=== PATIENT | female | born 1975 ===

== ENCOUNTER 2018-10-19 08:20 | Emergency (ER) | payer BC ==
[2018-10-19 08:41] VITALS: BP 111/84
--- NOTE | 2018-10-19 09:20 | ED ---
Skin Complaint - HPI Summary HPI Summary: Patient is a 33-year-old female who presents to the urgent care with chief complaint of having swelling and pain in the right hand after she was bit by an insect. Patient has no other complaints. - History of Current Complaint Chief Complaint: UCGeneralIllness Time Seen by Provider: 10/19/18 09:07 Stated Complaint: CONGESTION Hx Last Menstrual Period: 10/19/18 Pain Intensity: 0 - Allergy/Home Medications Allergies/Adverse Reactions: Allergies Allergy/AdvReac Type Severity Reaction Status Date / Time No Known Allergies Allergy Verified 10/19/18 09:13 Home Medications: Home Medications Guaifenesin/Dextromethorphan [Mucinex Dm ER 600-30 mg Tablet] 1 each PO ONCE [History Confirmed 10/19/18] Naproxen Sodium [Aleve] 220 mg PO ONCE 10/19/18 [History Confirmed 10/19/18] PMH/Surg Hx/FS Hx/Imm Hx Previously Healthy: Yes Endocrine/Hematology History: Denies: Hx Diabetes, Hx Thyroid Disease Cardiovascular History: Denies: Hx Hypercholesterolemia, Hx Hypertension, Hx Peripheral Vascular Disease Respiratory History: Denies: Hx Asthma Musculoskeletal History: Denies: Hx Arthritis, Hx Rheumatoid Arthritis, Hx Osteoporosis Sensory History: Denies: Hx Cataracts, Hx Contacts or Glasses, Hx Glaucoma Opthamlomology History: Denies: Hx Cataracts, Hx Contacts or Glasses, Hx Glaucoma Neurological History: Denies: Hx Headaches, Hx Seizures, Hx Transient Ischemic Attacks (TIA) Psychiatric History: Denies: Hx Anxiety, Hx Depression Infectious Disease History: No Infectious Disease History: Denies: Traveled Outside the [place] in Last 30 Days - Social History Alcohol Use: Occasionally Hx Substance Use: No Substance Use Type: Reports: None Hx Tobacco Use: Yes Smoking Status (MU): Never Smoked Tobacco Review of Systems Constitutional: Negative Eyes: Negative ENT: Negative Cardiovascular: Negative Respiratory: Negative Gastrointestinal: Negative Genitourinary: Negative Musculoskeletal: Negative Positive: Other - redness and swelling Neurological: Negative Psychological: Normal All Other Systems Reviewed And Are Negative: Yes Physical Exam - Summary Physical Exam Summary: VITAL SIGNS: Reviewed. GENERAL: Nontoxic. Well developed and well nourished. Appears well hydrated. No respiratory distress. HEAD: No signs of head trauma. The fontanels are WNL. EYES: Pupils are equal. EARS: Bilateral ear canals and tympanic membranes within normal limits. NOSE: Nasal mucosa WNL. No discharge. MOUTH: Oropharynx normal. NECK: Supple, non-tender, no masses. FROM without pain. No meningismus. CHEST: Chest non-tender to palpation. No intercostal retractions. LUNGS: Coarse breath sounds bilaterally CVS: RRR. S1 and S2, without murmurs or extra heart sounds. Peripheral pulses normal and equal in all extremities. Central capillary refill normal. ABDOMEN: Soft without detectable tenderness or masses. No signs of distention. No rebound or guarding. Bowel sounds normal MUSCULOSKELETAL: Normal Range of motion. No deformity. NEURO: Alert. No focal sensory or strength deficits. Age appropriate, active, moving all extremities well. SKIN: right hand with slight swelling and redness Triage Information Reviewed: Yes Vital Signs On Initial Exam: Initial Vitals Temp Pulse Resp BP Pulse Ox 97.8 F 54 16 111/84 100 10/19/18 08:38 10/19/18 08:38 10/19/18 08:38 10/19/18 08:38 10/19/18 08:38 Diagnostics - Vital Signs Vital Signs Temp Pulse Resp BP Pulse Ox 10/19/18 08:38 97.8 F 54 16 111/84 100 - Laboratory Lab Statement: Any lab studies that have been ordered have been reviewed, and results considered in the medical decision making process. Course/Dx - Course Assessment/Plan: It seems that the patient has an slight swelling and redness of the right hand possibly secondary to slight cellulitis. Therefore the patient was placed in Keflex and follow with the primary care physician in the next 2-3 days. Patient was recommended to return to the emergency department if she develops any more pain or swelling. She understands and agrees. - Diagnoses Provider Diagnoses: Cellulitis of hand Discharge - Sign-Out/Discharge Documenting (check all that apply): Patient Departure All imaging exams completed and their final reports reviewed: No Studies - Discharge Plan Condition: Stable Disposition: HOME Prescriptions: Cephalexin CAP* [Keflex CAP*] 500 mg PO TID #30 cap Patient Education Materials: Insect Bite or Sting (ED) Forms: *Work Release Referrals: Eliane Donis PA [Primary Care Provider] - Additional Instructions: Take medications as indicated. If symptoms worsens return to the ED. F/U with PCP in 3 days - Billing Disposition and Condition Condition: STABLE Disposition: Home
--- NOTE | 2018-10-19 09:34 | UC ---
Throat Pain/Nasal Jj HPI - HPI Summary HPI Summary: Patient is a 43-year-old female who presents to the emergency department with a chief complaint of having sore throat. She reports its something stuck in throat. She denies any fever, denies any chills, denies any difficulty swallowing, she denies any drooling, she denies any swelling of the tongue or lips. She has no other complaints. She reports that the symptoms started 2 days ago. - History of Current Complaint Chief Complaint: UCGeneralIllness Stated Complaint: CONGESTION Time Seen by Provider: 10/19/18 09:07 Hx Last Menstrual Period: 10/19/18 Severity: Mild Pain Intensity: 0 - Allergies/Home Medications Allergies/Adverse Reactions: Allergies Allergy/AdvReac Type Severity Reaction Status Date / Time No Known Allergies Allergy Verified 10/19/18 09:13 Home Medications: Home Medications Guaifenesin/Dextromethorphan [Mucinex Dm ER 600-30 mg Tablet] 1 each PO ONCE [History Confirmed 10/19/18] Naproxen Sodium [Aleve] 220 mg PO ONCE 10/19/18 [History Confirmed 10/19/18] PMH/Surg Hx/FS Hx/Imm Hx Previously Healthy: Yes - Surgical History Surgical History: None - Social History Alcohol Use: Occasionally Substance Use Type: None Smoking Status (MU): Never Smoked Tobacco Review of Systems All Other Systems Reviewed And Are Negative: Yes Physical Exam - Summary Physical Exam Summary: Gen.: Patient is a well developed and nourished female in no acute distress. Patient is sitting comfortably on the stretcher. Head: Normacephalic and atraumatic Eyes: PERRLA, EOMI x2. Ears: Right ear canal and TM WNL and Left ear canal and TM WNL Nose and mouth: Nose with dry mucosa and clear discharge, mild pharyngeal erythema with no exudate. Neck: Supple, Positive bilateral submandibular and anterior cervical lymphadenopathy. No JVD Lungs: CTA B/L CVS: S1 & S2 present. No murmurs appreciated. ABDOMEN: Soft NT w/ positive BS. EXT: FROM x 4 NEURO: A+O X 3. Triage Information Reviewed: Yes Vital Signs: Initial Vital Signs Temp 97.8 F 10/19/18 08:38 Pulse 54 10/19/18 08:38 Resp 16 10/19/18 08:38 BP 111/84 05/17/19 08:38 Pulse Ox 100 10/19/18 08:38 Throat Pain/Nasal Course/Dx - Course Course Of Treatment: He since that the patient has a viral infection since the strep test is negative. However she was recommended to go to the ER or ENT if the symptoms worsen. The patient and understands and agrees. She is hemodynamically stable alert and oriented 3. - Differential Dx/Diagnosis Provider Diagnosis: Sore throat (viral), Laryngitis Discharge - Sign-Out/Discharge Documenting (check all that apply): Patient Departure All imaging exams completed and their final reports reviewed: No Studies - Discharge Plan Condition: Stable Disposition: HOME Patient Education Materials: Insect Bite or Sting (ED), Upper Respiratory Infection (ED) Forms: *Work Release Referrals: Eliane Donis PA [Primary Care Provider] - Additional Instructions: Take medications as indicated. If symptoms worsens return to the ED. F/U with PCP in 3 days - Billing Disposition and Condition Condition: STABLE Disposition: Home
== END 2018-10-19 09:58 | disposition home or self-care (01) ==
LOC: UCEAST 08:20
DX: J02.8 Acute pharyngitis due to other specified organisms (principal); J04.0 Acute laryngitis
CPT/HCPCS: 87651; 99212; G0463